=== PATIENT | female | born 1955 | race Caucasian/White ===

== ENCOUNTER 2024-04-27 13:06 | Inpatient (IN) | payer MEDICARE, OTHER ==
[~2024-04-27] VITALS: Ht 154.9 cm; Wt 76.7 kg
[2024-04-27 14:50] VITALS: BP 149/64; PULSE 88; RESP 18; TEMP 97.9; O2SAT 95
[2024-04-27] MEDS ORDERED: ACETAMINOPHEN 325 MG TABLET PO PRN (16:15)
[2024-04-27] MEDS: *PATIENT'S OWN MED [ENTER DRUG, DOSE, FREQUENCY IN COMMENTS] CLINICAL ONE ×2 (16:15→16:30)
[2024-04-27] MEDS: MetFORMIN HCL 500 MG TABLET PO SCH (17:57)
[2024-04-27 18:00] LABS: GLUCOMETER DEV NAME(LOC) 2WR.1D; GLUCOSE,POINT OF CARE 136 MG/DL (70-110)
[2024-04-27] MEDS: FAMOTIDINE 20 MG TABLET PO SCH (20:17)
[2024-04-27] MEDS: ATORVASTATIN CALCIUM 40 MG TABLET PO SCH (20:17)
[2024-04-27] MEDS: HEPARIN SODIUM,PORCINE 5,000 UNITS/ML VIAL SQ SCH (20:19)
[2024-04-27] MEDS: SENNOSIDES 8.6 MG TABLET PO SCH (20:19)
[2024-04-27] MEDS ORDERED: DEXTROSE 50%-WATER 25 GM/50 ML SYRINGE IVP PRN (21:00)
[2024-04-27 21:15] LABS: GLUCOMETER DEV NAME(LOC) 2WR.1D; GLUCOSE,POINT OF CARE 179 MG/DL (70-110)
[2024-04-27 21:18] VITALS: BP 138/64; PULSE 94; RESP 19; TEMP 98.2; O2SAT 96
[2024-04-27 21:59] VITALS: O2SAT 96
[2024-04-28] MEDS: MELATONIN 5 MG TABLET PO PRN (00:42)
[2024-04-28 06:56] LABS: GLUCOMETER DEV NAME(LOC) 2WR.2B; GLUCOSE,POINT OF CARE 147 MG/DL (70-110)
[2024-04-28 08:00] VITALS: BP 121/59; PULSE 81; RESP 18; TEMP 98.1; O2SAT 95
[2024-04-28 08:03] LABS: BASOPHILS % (AUTO) 0.4 % (0.0-2.0); EOSINOPHILS % (AUTO) 1.5 % (1.0-6.0); HEMATOCRIT 41.7 % (36-46); HEMOGLOBIN 13.9 g/dL (12.0-16.0); LYMPHOCYTES # (AUTO) 4.1 K/uL (1.0-4.8); LYMPHOCYTES % (AUTO) 46.6 % (22.0-44.0); MEAN CORPUSCULAR HEMOGLOBIN 28.8 pg (26.0-34.0); MEAN CORPUSCULAR HGB CONC 33.2 G/dL (31.0-37.0); MEAN CORPUSCULAR VOLUME 87 fL (80-100); MONOCYTES # (AUTO) 0.6 K/uL (0.1-1.0); MONOCYTES % (AUTO) 6.7 % (2.0-9.0); NEUTROPHILS % (AUTO) 44.8 % (40.0-70.0); PLATELET COUNT (AUTO) 197 K/uL (150-450); RED BLOOD CELL COUNT(AUTO) 4.82 MIL/uL (4.00-5.20); RED CELL DISTRIBUTION WIDTH 14.3 % (11.5-14.5); WHITE BLOOD COUNT (AUTO) 8.9 K/uL (4.5-11.0)
[2024-04-28] MEDS: DULoxetine HCL 30 MG CAPSULE PO SCH (08:10)
[2024-04-28] MEDS: ASPIRIN 81 MG CHEWABLE TABLET PO SCH (08:10)
[2024-04-28] MEDS: ETHYL ALCOHOL 62% ANTISEPTIC NASAL SANITIZER 0.6 ML AMPUL NASAL SCH (08:10)
[2024-04-28] MEDS: BENAZEPRIL HCL 20 MG TABLET PO SCH (08:11)
[2024-04-28] MEDS: INSULIN LISPRO 100 UNITS/ML SQ PRN (08:12)
[2024-04-28 08:20] LABS: ALANINE AMINOTRANSFERASE 43 U/L (12-78); ALBUMIN 3.2 g/dL (3.4-5.0); ALKALINE PHOSPHATASE 116 U/L (46-116); ANION GAP 5 mmol/L (8-16); ASPARTATE AMINOTRANSFERASE 28 U/L (15-37); BILIRUBIN,TOTAL 0.6 mg/dL (0.1-1.0); CARBON DIOXIDE 31 mmol/L (22-29); CHLORIDE 100 mmol/L (98-107); CREATININE 0.46 mg/dL (0.60-1.30); GLOMERULAR FILTR. RATE CALC > 60 mL/min (>60); GLUCOSE,RANDOM 144 mg/dL (70-110); POTASSIUM 4.1 mmol/L (3.5-5.1); SODIUM SERUM 136 mmol/L (136-145); TOTAL PROTEIN, SERUM 7.1 g/dL (6.4-8.2); UREA NITROGEN, BLOOD 12 mg/dL (7-18)
[2024-04-28 11:40] LABS: GLUCOMETER DEV NAME(LOC) 2WR.2B; GLUCOSE,POINT OF CARE 127 MG/DL (70-110)
[2024-04-28 16:45] LABS: GLUCOMETER DEV NAME(LOC) 2WR.2B; GLUCOSE,POINT OF CARE 159 MG/DL (70-110)
[2024-04-28 20:10] VITALS: BP 131/64; PULSE 84; RESP 18; TEMP 98.8; O2SAT 98
[2024-04-28 22:02] VITALS: O2SAT 98
[2024-04-28 22:11] LABS: GLUCOMETER DEV NAME(LOC) 2WR.1D; GLUCOSE,POINT OF CARE 141 MG/DL (70-110)
[2024-04-29 07:15] LABS: GLUCOMETER DEV NAME(LOC) 2WR.1D; GLUCOSE,POINT OF CARE 156 MG/DL (70-110)
[2024-04-29 11:11] VITALS: BP 124/68; PULSE 85; RESP 18; TEMP 98; O2SAT 98
[2024-04-29 12:00] LABS: GLUCOMETER DEV NAME(LOC) 2WR.1D; GLUCOSE,POINT OF CARE 166 MG/DL (70-110)
[2024-04-29 16:35] LABS: GLUCOMETER DEV NAME(LOC) 2WR.2B; GLUCOSE,POINT OF CARE 141 MG/DL (70-110)
[2024-04-29 20:10] VITALS: BP 138/62; PULSE 92; RESP 18; TEMP 98.6; O2SAT 98
[2024-04-29 21:46] LABS: GLUCOMETER DEV NAME(LOC) 2WR.1D; GLUCOSE,POINT OF CARE 144 MG/DL (70-110)
[2024-04-29 21:47] VITALS: O2SAT 98
[2024-04-30 06:46] LABS: GLUCOMETER DEV NAME(LOC) 2WR.1D; GLUCOSE,POINT OF CARE 154 MG/DL (70-110)
[2024-04-30 08:00] VITALS: BP 137/59; PULSE 70; RESP 19; TEMP 98.2; O2SAT 99
[2024-04-30] MEDS: MECLIZINE HCL 12.5 MG TABLET PO PRN (08:21)
[2024-04-30 12:30] LABS: GLUCOMETER DEV NAME(LOC) 2WR.2B; GLUCOSE,POINT OF CARE 125 MG/DL (70-110)
[2024-04-30] MEDS ORDERED: LATA5DRO OU (14:50)
[2024-04-30] MEDS ORDERED: METF-446 PO (14:50)
[2024-04-30] MEDS ORDERED: ATOR20TA65 PO (14:50)
[2024-04-30] MEDS ORDERED: DULA4.5P SQ (14:50)
[2024-04-30] MEDS ORDERED: LIFI1DRO OU (14:50)
[2024-04-30] MEDS ORDERED: FAMO40TA7 PO (14:50)
[2024-04-30] MEDS ORDERED: DULO-114 PO (14:50)
[2024-04-30] MEDS ORDERED: BENA-8 PO (14:50)
[2024-04-30 18:05] LABS: GLUCOMETER DEV NAME(LOC) 2WR.1D; GLUCOSE,POINT OF CARE 218 MG/DL (70-110)
[2024-04-30 20:00] VITALS: BP 132/56; PULSE 80; RESP 19; TEMP 97.8; O2SAT 96
[2024-04-30] MEDS: LATANOPROSTENE BUNOD 0.024% OU SCH (20:19)
[2024-04-30 20:40] LABS: GLUCOMETER DEV NAME(LOC) 2WR.2B; GLUCOSE,POINT OF CARE 162 MG/DL (70-110)
[2024-05-01 06:50] LABS: GLUCOMETER DEV NAME(LOC) 2WR.2B; GLUCOSE,POINT OF CARE 167 MG/DL (70-110)
[2024-05-01 08:00] VITALS: BP 126/70; PULSE 84; RESP 18; TEMP 97.8; O2SAT 97
[2024-05-01 12:25] LABS: GLUCOMETER DEV NAME(LOC) 2WR.1D; GLUCOSE,POINT OF CARE 135 MG/DL (70-110)
[2024-05-01 17:40] LABS: GLUCOMETER DEV NAME(LOC) 2WR.2B; GLUCOSE,POINT OF CARE 149 MG/DL (70-110)
[2024-05-01 20:00] VITALS: BP 133/61; PULSE 81; RESP 18; TEMP 97.8; O2SAT 99
[2024-05-01 20:06] LABS: GLUCOMETER DEV NAME(LOC) 2WR.2B; GLUCOSE,POINT OF CARE 121 MG/DL (70-110)
[2024-05-02 06:51] LABS: GLUCOMETER DEV NAME(LOC) 2WR.1D; GLUCOSE,POINT OF CARE 151 MG/DL (70-110)
[2024-05-02 08:00] VITALS: BP 133/72; PULSE 65; RESP 19; TEMP 98.1; O2SAT 98
[2024-05-02 12:31] LABS: GLUCOMETER DEV NAME(LOC) 2WR.2B; GLUCOSE,POINT OF CARE 140 MG/DL (70-110)
[2024-05-02 17:15] LABS: GLUCOMETER DEV NAME(LOC) 2WR.1D; GLUCOSE,POINT OF CARE 167 MG/DL (70-110)
[2024-05-02 20:12] VITALS: BP 136/52; PULSE 72; RESP 18; TEMP 97.4; O2SAT 97
[2024-05-02 20:45] LABS: GLUCOMETER DEV NAME(LOC) 2WR.2B; GLUCOSE,POINT OF CARE 110 MG/DL (70-110)
[2024-05-02 22:28] VITALS: O2SAT 97
[2024-05-03 07:16] LABS: GLUCOMETER DEV NAME(LOC) 2WR.2B; GLUCOSE,POINT OF CARE 141 MG/DL (70-110)
[2024-05-03] MEDS: DULAGLUTIDE 4.5 MG/0.5 ML SQ SCH (07:56)
[2024-05-03 08:00] VITALS: BP 125/70; PULSE 77; RESP 19; TEMP 98.2; O2SAT 99
[2024-05-03 13:06] LABS: GLUCOMETER DEV NAME(LOC) 2WR.1D; GLUCOSE,POINT OF CARE 112 MG/DL (70-110)
[2024-05-03 18:06] LABS: GLUCOMETER DEV NAME(LOC) 2WR.1D; GLUCOSE,POINT OF CARE 112 MG/DL (70-110)
[2024-05-03 19:45] VITALS: BP 129/56; PULSE 76; RESP 18; TEMP 98.1; O2SAT 96
[2024-05-03] MEDS: ONDANSETRON HCL 4 MG TABLET PO PRN (20:42)
[2024-05-03 21:00] VITALS: O2SAT 96
[2024-05-03 21:20] LABS: GLUCOMETER DEV NAME(LOC) 2WR.2B; GLUCOSE,POINT OF CARE 124 MG/DL (70-110)
[2024-05-04 07:00] LABS: GLUCOMETER DEV NAME(LOC) 2WR.1D; GLUCOSE,POINT OF CARE 116 MG/DL (70-110)
[2024-05-04 07:45] VITALS: BP 132/68; PULSE 73; RESP 19; TEMP 98; O2SAT 98
[2024-05-04 08:00] VITALS: O2SAT 98
[2024-05-04 12:15] VITALS: BP 127/60; PULSE 74; RESP 18; TEMP 98.6; O2SAT 98
[2024-05-04 12:56] LABS: GLUCOMETER DEV NAME(LOC) 2WR.2B; GLUCOSE,POINT OF CARE 113 MG/DL (70-110)
[2024-05-04 17:45] LABS: GLUCOMETER DEV NAME(LOC) 2WR.1D; GLUCOSE,POINT OF CARE 149 MG/DL (70-110)
[2024-05-04 19:40] VITALS: BP 124/54; PULSE 73; RESP 18; TEMP 98.2; O2SAT 100
[2024-05-04] MEDS: DOCUSATE SODIUM 100 MG CAPSULE PO SCH (19:50)
[2024-05-04 20:20] LABS: GLUCOMETER DEV NAME(LOC) 2WR.1D; GLUCOSE,POINT OF CARE 130 MG/DL (70-110)
[2024-05-04 22:32] VITALS: O2SAT 98
[2024-05-05 07:00] LABS: GLUCOMETER DEV NAME(LOC) 2WR.2B; GLUCOSE,POINT OF CARE 111 MG/DL (70-110)
[2024-05-05 08:00] VITALS: BP 118/60; PULSE 84; RESP 19; TEMP 97.3; O2SAT 97
[2024-05-05 12:46] LABS: GLUCOMETER DEV NAME(LOC) 2WR.1D; GLUCOSE,POINT OF CARE 127 MG/DL (70-110)
[2024-05-05 17:16] LABS: GLUCOMETER DEV NAME(LOC) 2WR.1D; GLUCOSE,POINT OF CARE 107 MG/DL (70-110)
[2024-05-05 20:05] VITALS: BP 113/64; PULSE 73; RESP 19; TEMP 98.4; O2SAT 98
[2024-05-05 20:56] LABS: GLUCOMETER DEV NAME(LOC) 2WR.1D; GLUCOSE,POINT OF CARE 133 MG/DL (70-110)
[2024-05-05 21:55] VITALS: O2SAT 98
[2024-05-06] MEDS: DOCUSATE SODIUM 283 MG/5 ML MINI-ENEMA PR PRN (06:17)
[2024-05-06 06:50] LABS: GLUCOMETER DEV NAME(LOC) 2WR.2B; GLUCOSE,POINT OF CARE 113 MG/DL (70-110)
[2024-05-06 08:00] VITALS: BP 135/68; PULSE 71; RESP 19; TEMP 98; O2SAT 97
[2024-05-06 14:21] LABS: GLUCOMETER DEV NAME(LOC) 2WR.1D; GLUCOSE,POINT OF CARE 136 MG/DL (70-110)
[2024-05-06 17:01] LABS: GLUCOMETER DEV NAME(LOC) 2WR.2B; GLUCOSE,POINT OF CARE 95 MG/DL (70-110)
[2024-05-06 20:14] VITALS: BP 132/63; PULSE 77; RESP 18; TEMP 98.2; O2SAT 97
[2024-05-06 21:05] LABS: GLUCOMETER DEV NAME(LOC) 2WR.2B; GLUCOSE,POINT OF CARE 135 MG/DL (70-110)
[2024-05-06 22:45] VITALS: O2SAT 97
[2024-05-07 07:56] LABS: GLUCOMETER DEV NAME(LOC) 2WR.2B; GLUCOSE,POINT OF CARE 123 MG/DL (70-110)
[2024-05-07 08:00] VITALS: BP 133/67; PULSE 75; RESP 19; TEMP 98.7; O2SAT 98
[2024-05-07 11:56] LABS: GLUCOMETER DEV NAME(LOC) 2WR.1D; GLUCOSE,POINT OF CARE 118 MG/DL (70-110)
[2024-05-07 18:31] LABS: GLUCOMETER DEV NAME(LOC) 2WR.2B; GLUCOSE,POINT OF CARE 107 MG/DL (70-110)
[2024-05-07 19:52] VITALS: BP 130/53; PULSE 78; RESP 18; TEMP 98.8; O2SAT 97
[2024-05-07 22:07] VITALS: O2SAT 97
[2024-05-08 02:26] LABS: GLUCOMETER DEV NAME(LOC) 2WR.2B; GLUCOSE,POINT OF CARE 116 MG/DL (70-110)
[2024-05-08 06:55] LABS: GLUCOMETER DEV NAME(LOC) 2WR.1D; GLUCOSE,POINT OF CARE 116 MG/DL (70-110)
[2024-05-08 08:05] VITALS: BP 118/91; PULSE 81; RESP 18; TEMP 98.1; O2SAT 96
[2024-05-08 11:21] VITALS: O2SAT 96
[2024-05-08 12:31] LABS: GLUCOMETER DEV NAME(LOC) 2WR.1D; GLUCOSE,POINT OF CARE 102 MG/DL (70-110)
[2024-05-08 17:25] LABS: GLUCOMETER DEV NAME(LOC) 2WR.1D; GLUCOSE,POINT OF CARE 162 MG/DL (70-110)
[2024-05-08 20:00] VITALS: BP 138/69; PULSE 93; RESP 18; TEMP 98.3; O2SAT 98
[2024-05-08 20:35] LABS: GLUCOMETER DEV NAME(LOC) 2WR.1D; GLUCOSE,POINT OF CARE 107 MG/DL (70-110)
[2024-05-09 06:45] LABS: GLUCOMETER DEV NAME(LOC) 2WR.2B; GLUCOSE,POINT OF CARE 121 MG/DL (70-110)
[2024-05-09 08:00] VITALS: BP 136/58; PULSE 71; RESP 18; TEMP 98.4; O2SAT 96
[2024-05-09 12:01] LABS: GLUCOMETER DEV NAME(LOC) 2WR.1D; GLUCOSE,POINT OF CARE 110 MG/DL (70-110)
[2024-05-09 17:31] LABS: GLUCOMETER DEV NAME(LOC) 2WR.2B; GLUCOSE,POINT OF CARE 108 MG/DL (70-110)
[2024-05-09] MEDS: PANTOPRAZOLE SODIUM 40 MG DR TABLET PO SCH (20:19)
[2024-05-09 20:27] VITALS: BP 124/68; PULSE 80; RESP 18; TEMP 97.8; O2SAT 97
[2024-05-09 21:25] LABS: GLUCOMETER DEV NAME(LOC) 2WR.2B; GLUCOSE,POINT OF CARE 112 MG/DL (70-110)
[2024-05-09 21:26] VITALS: O2SAT 97
[2024-05-10 06:50] LABS: GLUCOMETER DEV NAME(LOC) 2WR.1D; GLUCOSE,POINT OF CARE 107 MG/DL (70-110)
[2024-05-10 08:00] VITALS: BP 127/54; PULSE 82; RESP 19; TEMP 98.7; O2SAT 96
[2024-05-10 12:20] LABS: GLUCOMETER DEV NAME(LOC) 2WR.1D; GLUCOSE,POINT OF CARE 128 MG/DL (70-110)
[2024-05-10 17:45] LABS: GLUCOMETER DEV NAME(LOC) 2WR.1D; GLUCOSE,POINT OF CARE 107 MG/DL (70-110)
[2024-05-10 20:00] VITALS: BP 128/68; PULSE 78; RESP 18; TEMP 98.3; O2SAT 99
[2024-05-10 22:10] LABS: GLUCOMETER DEV NAME(LOC) 2WR.1D; GLUCOSE,POINT OF CARE 114 MG/DL (70-110)
[2024-05-11 06:45] LABS: GLUCOMETER DEV NAME(LOC) 2WR.2B; GLUCOSE,POINT OF CARE 104 MG/DL (70-110)
[2024-05-11 08:01] VITALS: BP 132/71; PULSE 80; RESP 18; TEMP 98.2; O2SAT 96
[2024-05-11] MEDS ORDERED: ASPI-1450 PO (10:44)
[2024-05-11] MEDS ORDERED: BENA-8 PO (10:44)
[2024-05-11] MEDS ORDERED: PANT-31 PO (10:44)
[2024-05-11] MEDS ORDERED: METF-1211 PO (10:44)
[2024-05-11] MEDS ORDERED: DULO-114 PO (10:44)
[2024-05-11] MEDS ORDERED: ATOR40TA71 PO (10:44)
[2024-05-11] MEDS ORDERED: SENN-277 PO (10:44)
[2024-05-11] MEDS ORDERED: MECL-226 PO (10:44)
[2024-05-11 15:06] LABS: GLUCOMETER DEV NAME(LOC) 2WR.2B; GLUCOSE,POINT OF CARE 97 MG/DL (70-110)
== END 2024-05-11 12:30 | disposition home health service (06) | DRG 66 ==
LOC: 2WR 14:42
PROVIDERS: ADMIT Physical Medicine & Rehabilitation; ATTEND Physical Medicine & Rehabilitation
DX: I63.541 Cerebral infarction due to unspecified occlusion or stenosis of right cerebellar artery (principal); E11.9 Type 2 diabetes mellitus without complications; E78.5 Hyperlipidemia, unspecified; I10 Essential (primary) hypertension; M79.7 Fibromyalgia; Z74.09 Other reduced mobility; E66.01 Morbid (severe) obesity due to excess calories; F17.210 Nicotine dependence, cigarettes, uncomplicated; R47.1 Dysarthria and anarthria; I44.7 Left bundle-branch block, unspecified; Z74.1 Need for assistance with personal care; R11.2 Nausea with vomiting, unspecified; R26.9 Unspecified abnormalities of gait and mobility; R27.8 Other lack of coordination; R82.71 Bacteriuria; Z91.81 History of falling; Z86.73 Personal history of transient ischemic attack (TIA), and cerebral infarction without residual deficits; Z79.899 Other long term (current) drug therapy; Z68.31 Body mass index [BMI] 31.0-31.9, adult
CPT/HCPCS: 80053; 82962; 85025; 87081; 92523; 97110; 97112; 97116; 97150; 97163; 97167; 97530; 97535; 99366; J1644; Q0162